=== PATIENT | male | born 2000 | race Caucasian/White ===

== ENCOUNTER 2021-09-04 01:47 | Emergency (ER) | payer BC, OTHER ==
[~2021-09-04] VITALS: Ht 175.3 cm; Wt 68.2 kg
[2021-09-04 02:23] VITALS: TEMP 98.1
[2021-09-04 03:28] VITALS: BP 111/72; PULSE 61
== END 2021-09-04 03:31 | disposition home or self-care (01) ==
LOC: COL.ER 01:47
DX: S43.101A Unspecified dislocation of right acromioclavicular joint, initial encounter (principal); Z87.828 Personal history of other (healed) physical injury and trauma; Y04.0XXA Assault by unarmed brawl or fight, initial encounter